=== PATIENT | female | born 1985 | race Hispanic/Latino ===

== ENCOUNTER 2023-06-12 19:42 | Emergency (ER) | payer BC ==
[~2023-06-12] VITALS: Ht 162.6 cm; Wt 109.8 kg
[~2023-06-12 19:42] MED LIST: ACET1TAB12 PO; IBUP-2070 PO
[2023-06-12 19:44] VITALS: BP 156/96; PULSE 104; RESP 20; O2SAT 99
[2023-06-13] MEDS ORDERED: IBUP-1493 PO (01:41)
== END 2023-06-13 02:12 | disposition home or self-care (01) ==
LOC: EDH 19:42
DX: M79.672 Pain in left foot (principal); M25.572 Pain in left ankle and joints of left foot; E03.9 Hypothyroidism, unspecified; J45.909 Unspecified asthma, uncomplicated; Z90.49 Acquired absence of other specified parts of digestive tract
CPT/HCPCS: 73600; 73630; 96365; 96375